=== PATIENT | male | born 1960 | race Caucasian/White ===

== ENCOUNTER 2021-07-25 20:04 | Emergency (ER) | payer OTHER ==
[~2021-07-25 20:04] MED LIST: COL-RITE250 MG PO; ENALAPRIL MALEA20 MG PO; IBUPROFEN800 MG PO; METFORMIN HCL1000 MG PO; PERCOCET 7.5-31 EACH PO; TRAMADOL HCL50 MG PO; ZOFRAN4 MG PO
[2021-07-25 21:10] LABS: HEMOGLOBIN 13.6 gm/dl (14.0-17.5); RED BLOOD COUNT 4.39 M/UL (4.20-5.50); WHITE BLOOD COUNT 15.4 K/UL (4.5-11.0)
[2021-07-25] MEDS ORDERED: DOXYCYCLINE HY100 M2 PO (22:43)
== END 2021-07-25 23:05 | disposition home or self-care (01) ==
LOC: ER1 20:04
PROVIDERS: Physician Assistant
DX: L03.113 Cellulitis of right upper limb (principal); M25.461 Effusion, right knee; I10 Essential (primary) hypertension; E11.9 Type 2 diabetes mellitus without complications
CPT/HCPCS: 73130; 73564; 80048; 84550; 85025; 85652; 86140; 87040; 96372; 99283; J1885

== ENCOUNTER 2022-03-01 20:12 | Emergency (ER) | payer OTHER ==
[~2022-03-01 20:12] MED LIST changes: +DOXYCYCLINE HY100 M2 PO
[2022-03-01 20:45] LABS: HEMOGLOBIN 13.7 gm/dl (14.0-17.5); RED BLOOD COUNT 4.49 M/UL (4.20-5.50)
== END 2022-03-01 22:55 | disposition home or self-care (01) ==
LOC: ER1 20:12
PROVIDERS: Physician Assistant
DX: I80.8 Phlebitis and thrombophlebitis of other sites (principal); E11.9 Type 2 diabetes mellitus without complications; I10 Essential (primary) hypertension; Z88.5 Allergy status to narcotic agent
CPT/HCPCS: 80053; 85025; 85379; 96372; 99283; J1650

== ENCOUNTER → 2022-03-02 | Outpatient (CLI) | payer OTHER | LOC: US 12:59 | DX: R22.31 Localized swelling, mass and lump, right upper limb (principal) | CPT/HCPCS: 93971 ==